=== PATIENT | female | born 1970 | race Caucasian/White ===

== ENCOUNTER 2023-09-16 15:01 | Emergency (ER) | payer MEDICAID ==
[~2023-09-16] VITALS: Ht 160 cm; Wt 70.0 kg
[2023-09-16 15:09] VITALS: O2SAT 95
[2023-09-16] MEDS: DEXAMETHASONE 10 MG/ML VIAL IM ONE (15:23)
[2023-09-16] MEDS ORDERED: CIPR-263 MT (15:48)
[2023-09-16 16:35] LABS: BASOPHILS % 0.7 % (0.0-2.0); EOSINOPHILS % 1.4 % (0.0-5.0); HEMATOCRIT. 35.4 % (36.0-48.0); HEMOGLOBIN. 12.2 g/dL (12.0-16.0); LYMPHOCYTES % 31.4 % (20.0-50.0); MEAN CORPUSCULAR HGB CONC 34.5 g/dL (31.0-37.0); MEAN CORPUSCULAR VOLUME 89.9 fL (81.0-99.0); MEAN PLATELET VOLUME 10.1 fl (7.4-10.4); MONOCYTES % 5.2 % (2.0-8.0); NEUTROPHILS % 61.3 % (40.0-76.0); PLATELET 252 x1000/uL (130-400); RED BLOOD CELL COUNT 3.93 mill/uL (4.2-5.4); RED CELL DISTRIBUTION WIDTH 12.9 % (11.6-14.6); WHITE BLOOD COUNT 8.1 x1000/uL (4.5-11.0)
[2023-09-16 16:42] LABS: CHLORIDE 107 mEq/L (98-107); POTASSIUM 3.8 mEq/L (3.5-5.1); SODIUM 139 mEq/L (136-145)
[2023-09-16 16:43] LABS: CARBON DIOXIDE 27 mEq/L (21-32)
[2023-09-16 16:44] LABS: CALCIUM 9.4 mg/dL (8.7-10.4)
[2023-09-16 16:49] LABS: CREATININE 0.6 mg/dL (0.6-1.0); GLUCOSE 102 mg/dL (70-105); UREA NITROGEN BLOOD 11 mg/dL (9-23)
[2023-09-16 16:50] LABS: TROPONIN I HIGH SENSITIVITY < 4 ng/L (3.0-34)
[2023-09-16 18:45] VITALS: BP 136/73; PULSE 85; RESP 17; TEMP 98.1
== END 2023-09-16 18:45 | disposition home or self-care (01) ==
LOC: ER 15:01
DX: T78.40XA Allergy, unspecified, initial encounter (principal); R07.89 Other chest pain; Z88.0 Allergy status to penicillin; Z88.1 Allergy status to other antibiotic agents; X58.XXXA Exposure to other specified factors, initial encounter
CPT/HCPCS: 80048; 85025; 84484; 36415; 71045; 93005; 96372; 99285; J1100; Z7610